=== PATIENT | male | born 1960 | race Caucasian/White ===

== ENCOUNTER 2022-10-09 01:05 | Inpatient (IN) | payer OTHER ==
[2022-10-09 03:08] VITALS: BMI 30.8
[2022-10-09] MEDS ORDERED: Ondansetron PF 4 MG/2 ML Vial IVP PRN (03:09)
[2022-10-09] MEDS ORDERED: Acetaminophen 325 MG TAB PO PRN (03:09)
[2022-10-09] MEDS ORDERED: Calcium Carbonate 500 MG ChewTAB PO PRN (03:09)
[2022-10-09] MEDS ORDERED: Ondansetron ODT 4 MG TAB PO PRN (03:09)
[2022-10-09 04:52] LABS: #Basophils 0.1 thou/uL (0.0-0.2); #Eosinphils 0.2 thou/uL (0.0-0.7); #Monocytes 0.6 thou/uL (0.11-0.59); #Neutrophils 7.4 thou/uL (1.40-6.50); %Eosinophils 2.1 % (0.0-10.0); %Lymphocytes 12.6 % (21.0-51.0); %Monocytes 6.5 % (0.0-10.0); %Neutrophils 77.3 % (42.0-75.0); Hemoglobin 11.5 g/dL (14.0-18.0); Mean Corpuscular HGB CONC 29.8 g/dL (32.0-36.0); Mean Corpuscular Hemoglobin 24.3 pg (27.0-31.0); Mean Corpuscular Volume 81.6 fl (78.0-98.0); Mean Platelet Volume 9.6 fL (7.4-10.4); Platelet Count 297 10x3/uL (130-400); RBC Distribution Width 17.1 % (11.5-14.5); Red Blood Cell (RBC) Count 4.73 mill/uL (4.70-6.10); White Blood Cell (WBC) Count 9.6 10x3/uL (4.8-10.8)
[2022-10-09 05:17] LABS: Anion Gap 14 mmol/L (10-20); BUN (Urea Nitrogen) 36 mg/dL (8.4-25.7); Calc. Creatinine Clearance 68 mL/min (70-130); Calcium 8.9 mg/dL (7.8-10.44); Carbon Dioxide 20 mmol/L (23-31); Chloride 111 mmol/L (98-107); Estimated GFR 48; Glucose 108 mg/dL (80-115); Potassium 4.8 mmol/L (3.5-5.1); Sodium 140 mmol/L (136-145)
[2022-10-09 05:21] LABS: Troponin I 0.028 ng/mL (< 0.028)
[2022-10-09] MEDS ORDERED: Furosemide 40 MG/4 ML VIAL SLOW IVP SCH (06:00)
[2022-10-09] MEDS: Levothyroxine Sodium 25 MCG TAB PO SCH (06:04)
[2022-10-09 07:01] LABS: Troponin I 0.032 ng/mL (< 0.028)
[2022-10-09] MEDS ORDERED: Clopidogrel Bisulfate 300 MG TAB PO SCH (08:15)
[2022-10-09] MEDS: Carvedilol 6.25 MG TAB PO SCH ×2 (08:43→18:02)
[2022-10-09] MEDS: Aspirin 81 mg Enteric Coated Tablet PO SCH (08:43)
[2022-10-09] MEDS: Spironolactone 25 MG TAB PO SCH (08:43)
[2022-10-09] MEDS: Atorvastatin Calcium 40 MG TAB PO SCH (08:44)
[2022-10-09] MEDS: Loratadine 10 MG TAB PO SCH (08:44)
[2022-10-09] MEDS: Sodium Bicarbonate Tab 325 MG TAB PO SCH ×2 (08:44→20:32)
[2022-10-09] MEDS: hydrALAZINE 25 MG TAB PO SCH ×2 (08:44→20:32)
[2022-10-09] MEDS ORDERED: Isosorbide Dinitrate 20 MG TAB PO SCH (09:00)
[2022-10-09] MEDS ORDERED: Lisinopril 2.5 MG TAB PO SCH (09:00)
[2022-10-09] MEDS: Isosorbide Dinitrate 20 MG TAB PO SCH ×2 (10:14→20:34)
[2022-10-09] MEDS: Furosemide 100 MG/10 ML VIAL SLOW IVP SCH (14:37)
[2022-10-09] MEDS: Albuterol 200 PUFF (6.7GM INHALER) INH PRN (20:55)
[2022-10-10 05:05] LABS: #Basophils 0.1 thou/uL (0.0-0.2); #Eosinphils 0.3 thou/uL (0.0-0.7); #Monocytes 0.5 thou/uL (0.11-0.59); #Neutrophils 5.1 thou/uL (1.40-6.50); %Eosinophils 3.9 % (0.0-10.0); %Monocytes 7.2 % (0.0-10.0); %Neutrophils 71.5 % (42.0-75.0); Hemoglobin 10.3 g/dL (14.0-18.0); Mean Corpuscular HGB CONC 30.3 g/dL (32.0-36.0); Mean Corpuscular Hemoglobin 24.6 pg (27.0-31.0); Mean Corpuscular Volume 81.3 fl (78.0-98.0); Mean Platelet Volume 9.9 fL (7.4-10.4); Platelet Count 289 10x3/uL (130-400); RBC Distribution Width 16.9 % (11.5-14.5); Red Blood Cell (RBC) Count 4.18 mill/uL (4.70-6.10); White Blood Cell (WBC) Count 7.1 10x3/uL (4.8-10.8)
[2022-10-10 05:29] LABS: Anion Gap 14 mmol/L (10-20); BUN (Urea Nitrogen) 43 mg/dL (8.4-25.7); Calc. Creatinine Clearance 62 mL/min (70-130); Calcium 8.8 mg/dL (7.8-10.44); Carbon Dioxide 21 mmol/L (23-31); Chloride 109 mmol/L (98-107); Estimated GFR 43; Glucose 91 mg/dL (80-115); Potassium 4.3 mmol/L (3.5-5.1); Sodium 140 mmol/L (136-145)
[2022-10-10] MEDS: Levothyroxine Sodium 25 MCG TAB PO SCH (05:57)
[2022-10-10] MEDS: Furosemide 100 MG/10 ML VIAL SLOW IVP SCH ×2 (05:57→15:30)
[2022-10-10] MEDS ORDERED: Lisinopril 2.5 MG TAB PO SCH (07:23)
[2022-10-10] MEDS: Carvedilol 6.25 MG TAB PO SCH ×2 (08:48→16:54)
[2022-10-10] MEDS: Spironolactone 25 MG TAB PO SCH (08:49)
[2022-10-10] MEDS: Aspirin 81 mg Enteric Coated Tablet PO SCH (08:49)
[2022-10-10] MEDS: Atorvastatin Calcium 40 MG TAB PO SCH (08:49)
[2022-10-10] MEDS: Isosorbide Dinitrate 20 MG TAB PO SCH ×2 (08:50→20:31)
[2022-10-10] MEDS: Clopidogrel Bisulfate 75 MG TAB PO SCH (08:50)
[2022-10-10] MEDS: hydrALAZINE 25 MG TAB PO SCH ×2 (08:50→20:31)
[2022-10-10] MEDS: Loratadine 10 MG TAB PO SCH (08:51)
[2022-10-10] MEDS: Sodium Bicarbonate Tab 325 MG TAB PO SCH ×2 (08:51→20:31)
[2022-10-10] MEDS ORDERED: Lisinopril 5 MG TAB PO SCH (09:00)
[2022-10-10] MEDS: Albuterol 200 PUFF (6.7GM INHALER) INH PRN (13:27)
[2022-10-11] MEDS: Levothyroxine Sodium 25 MCG TAB PO SCH (06:10)
[2022-10-11] MEDS: Furosemide 100 MG/10 ML VIAL SLOW IVP SCH (06:10)
[2022-10-11 06:24] LABS: #Basophils 0.1 thou/uL (0.0-0.2); #Eosinphils 0.2 thou/uL (0.0-0.7); #Monocytes 0.6 thou/uL (0.11-0.59); #Neutrophils 4.9 thou/uL (1.40-6.50); %Eosinophils 3.3 % (0.0-10.0); %Lymphocytes 17.8 % (21.0-51.0); %Monocytes 8.8 % (0.0-10.0); %Neutrophils 68.5 % (42.0-75.0); Hemoglobin 10.6 g/dL (14.0-18.0); Mean Corpuscular HGB CONC 31.2 g/dL (32.0-36.0); Mean Corpuscular Hemoglobin 24.9 pg (27.0-31.0); Mean Platelet Volume 9.5 fL (7.4-10.4); Platelet Count 317 10x3/uL (130-400); Red Blood Cell (RBC) Count 4.25 mill/uL (4.70-6.10); White Blood Cell (WBC) Count 7.2 10x3/uL (4.8-10.8)
[2022-10-11 06:43] LABS: Anion Gap 16 mmol/L (10-20); BUN (Urea Nitrogen) 54 mg/dL (8.4-25.7); Calc. Creatinine Clearance 63 mL/min (70-130); Calcium 9.1 mg/dL (7.8-10.44); Carbon Dioxide 23 mmol/L (23-31); Chloride 105 mmol/L (98-107); Estimated GFR 43; Glucose 96 mg/dL (80-115); Potassium 4.3 mmol/L (3.5-5.1); Sodium 140 mmol/L (136-145)
[2022-10-11] MEDS: Albuterol 200 PUFF (6.7GM INHALER) INH PRN (07:10)
[2022-10-11] MEDS: Isosorbide Dinitrate 20 MG TAB PO SCH ×2 (09:57→21:45)
[2022-10-11] MEDS: Sodium Bicarbonate Tab 325 MG TAB PO SCH ×2 (09:57→21:45)
[2022-10-11] MEDS: Lisinopril 10 MG TAB PO SCH (09:57)
[2022-10-11] MEDS: Atorvastatin Calcium 40 MG TAB PO SCH (09:58)
[2022-10-11] MEDS: hydrALAZINE 25 MG TAB PO SCH ×2 (09:58→21:46)
[2022-10-11] MEDS: ALPRAZolam 0.25 MG TAB PO SCH ×3 (09:58→21:46)
[2022-10-11] MEDS: Aspirin 81 mg Enteric Coated Tablet PO SCH (09:58)
[2022-10-11] MEDS: Clopidogrel Bisulfate 75 MG TAB PO SCH (09:58)
[2022-10-11] MEDS: Furosemide 40 MG TAB PO SCH ×2 (09:58→15:33)
[2022-10-11] MEDS: Spironolactone 25 MG TAB PO SCH (09:59)
[2022-10-11] MEDS: Carvedilol 6.25 MG TAB PO SCH ×2 (09:59→17:36)
[2022-10-11] MEDS: Loratadine 10 MG TAB PO SCH (09:59)
[2022-10-12 04:14] LABS: #Basophils 0.1 thou/uL (0.0-0.2); #Eosinphils 0.3 thou/uL (0.0-0.7); #Monocytes 0.8 thou/uL (0.11-0.59); #Neutrophils 5.2 thou/uL (1.40-6.50); %Basophils 0.8 % (0.0-1.0); %Eosinophils 3.4 % (0.0-10.0); %Lymphocytes 17.3 % (21.0-51.0); %Neutrophils 68.1 % (42.0-75.0); Hemoglobin 10.8 g/dL (14.0-18.0); Mean Corpuscular HGB CONC 30.9 g/dL (32.0-36.0); Mean Corpuscular Hemoglobin 24.8 pg (27.0-31.0); Mean Corpuscular Volume 80.2 fl (78.0-98.0); Mean Platelet Volume 9.6 fL (7.4-10.4); Platelet Count 369 10x3/uL (130-400); RBC Distribution Width 16.9 % (11.5-14.5); Red Blood Cell (RBC) Count 4.35 mill/uL (4.70-6.10); White Blood Cell (WBC) Count 7.6 10x3/uL (4.8-10.8)
[2022-10-12 04:46] LABS: Anion Gap 16 mmol/L (10-20); BUN (Urea Nitrogen) 52 mg/dL (8.4-25.7); Calc. Creatinine Clearance 57 mL/min (70-130); Calcium 9.2 mg/dL (7.8-10.44); Carbon Dioxide 25 mmol/L (23-31); Chloride 100 mmol/L (98-107); Estimated GFR 39; Glucose 102 mg/dL (80-115); Potassium 3.8 mmol/L (3.5-5.1); Sodium 137 mmol/L (136-145)
[2022-10-12] MEDS: Levothyroxine Sodium 25 MCG TAB PO SCH (05:46)
[2022-10-12] MEDS: ALPRAZolam 0.25 MG TAB PO SCH ×3 (08:06→20:07)
[2022-10-12] MEDS: Spironolactone 25 MG TAB PO SCH (08:06)
[2022-10-12] MEDS: Aspirin 81 mg Enteric Coated Tablet PO SCH (08:06)
[2022-10-12] MEDS: Loratadine 10 MG TAB PO SCH (08:06)
[2022-10-12] MEDS: Sodium Bicarbonate Tab 325 MG TAB PO SCH ×2 (08:07→20:07)
[2022-10-12] MEDS: Furosemide 40 MG TAB PO SCH ×2 (08:07→14:14)
[2022-10-12] MEDS: Clopidogrel Bisulfate 75 MG TAB PO SCH (08:07)
[2022-10-12] MEDS: Lisinopril 10 MG TAB PO SCH (08:07)
[2022-10-12] MEDS: Carvedilol 6.25 MG TAB PO SCH ×2 (08:07→17:56)
[2022-10-12] MEDS: Isosorbide Dinitrate 20 MG TAB PO SCH ×2 (08:07→20:07)
[2022-10-12] MEDS: hydrALAZINE 25 MG TAB PO SCH ×2 (08:07→20:07)
[2022-10-12] MEDS: Atorvastatin Calcium 40 MG TAB PO SCH (08:07)
[2022-10-13 04:51] LABS: #Basophils 0.1 thou/uL (0.0-0.2); #Eosinphils 0.3 thou/uL (0.0-0.7); #Monocytes 0.7 thou/uL (0.11-0.59); #Neutrophils 4.4 thou/uL (1.40-6.50); %Eosinophils 4.2 % (0.0-10.0); %Lymphocytes 20.7 % (21.0-51.0); %Monocytes 10.2 % (0.0-10.0); %Neutrophils 63.6 % (42.0-75.0); Hemoglobin 11.1 g/dL (14.0-18.0); Mean Corpuscular HGB CONC 30.3 g/dL (32.0-36.0); Mean Corpuscular Hemoglobin 24.6 pg (27.0-31.0); Mean Platelet Volume 9.3 fL (7.4-10.4); Platelet Count 378 10x3/uL (130-400); Red Blood Cell (RBC) Count 4.52 mill/uL (4.70-6.10)
[2022-10-13] MEDS: Levothyroxine Sodium 25 MCG TAB PO SCH (05:06)
[2022-10-13 05:14] LABS: Anion Gap 15 mmol/L (10-20); BUN (Urea Nitrogen) 40 mg/dL (8.4-25.7); Calc. Creatinine Clearance 69 mL/min (70-130); Calcium 9.3 mg/dL (7.8-10.44); Carbon Dioxide 26 mmol/L (23-31); Chloride 97 mmol/L (98-107); Estimated GFR 48; Glucose 81 mg/dL (80-115); Potassium 3.9 mmol/L (3.5-5.1); Sodium 134 mmol/L (136-145)
[2022-10-13] MEDS: Spironolactone 25 MG TAB PO SCH (09:15)
[2022-10-13] MEDS: Carvedilol 6.25 MG TAB PO SCH (09:15)
[2022-10-13] MEDS: ALPRAZolam 0.25 MG TAB PO SCH ×2 (09:15→14:01)
[2022-10-13] MEDS: Atorvastatin Calcium 40 MG TAB PO SCH (09:16)
[2022-10-13] MEDS: Aspirin 81 mg Enteric Coated Tablet PO SCH (09:16)
[2022-10-13] MEDS: hydrALAZINE 25 MG TAB PO SCH (09:16)
[2022-10-13] MEDS: Furosemide 40 MG TAB PO SCH ×2 (09:16→14:01)
[2022-10-13] MEDS: Lisinopril 10 MG TAB PO SCH (09:16)
[2022-10-13] MEDS: Clopidogrel Bisulfate 75 MG TAB PO SCH (09:16)
[2022-10-13] MEDS: Isosorbide Dinitrate 20 MG TAB PO SCH (09:17)
[2022-10-13] MEDS: Sodium Bicarbonate Tab 325 MG TAB PO SCH (09:17)
[2022-10-13] MEDS: Loratadine 10 MG TAB PO SCH (09:18)
[2022-10-13 14:17] VITALS: BP 108/67; TEMP 97.5
== END 2022-10-13 15:09 | DRG 280 ==
LOC: 2NO 02:54 → EEVIPCON 02:54
PROVIDERS: ADMIT Student in an Organized Health Care Education/Training Program; ATTEND Internal Medicine
DX: I13.0 Hypertensive heart and chronic kidney disease with heart failure and stage 1 through stage 4 chronic kidney disease, or unspecified chronic kidney disease (principal); I50.23 Acute on chronic systolic (congestive) heart failure; I21.A1 Myocardial infarction type 2; I25.10 Atherosclerotic heart disease of native coronary artery without angina pectoris; N18.9 Chronic kidney disease, unspecified; E03.9 Hypothyroidism, unspecified; C61 Malignant neoplasm of prostate; I25.5 Ischemic cardiomyopathy; R00.0 Tachycardia, unspecified; F41.9 Anxiety disorder, unspecified; Z88.8 Allergy status to other drugs, medicaments and biological substances; Z95.1 Presence of aortocoronary bypass graft; Z79.899 Other long term (current) drug therapy; Z79.890 Hormone replacement therapy; Z90.49 Acquired absence of other specified parts of digestive tract; Z79.51 Long term (current) use of inhaled steroids
CPT/HCPCS: 36415; 80048; 82553; 84484; 85025; 93005; 93010; 97139; J1650; J1940